=== PATIENT | male | born 1935 | race Caucasian/White ===

== ENCOUNTER 2017-08-20 09:19 | Inpatient (IN) | payer MEDICARE, OTHER ==
[~2017-08-20] VITALS: Ht 177.8 cm; Wt 80.0 kg
[~2017-08-20 09:19] MED LIST: ALFU1TAB10 PO; ASPI81TA82 PO; HYDR-3580 PO; METO25CR PO; NITR.3 SL; PROS5TAB2 PO; REST7.5C PO; RIVA15 PO; SIMV40TA PO; SPIRCAP INH; TAMS5CAP PO; ZETI10TA5 PO
[2017-08-20 09:34] VITALS: BP 113/54; PULSE 78; RESP 16; TEMP 97.5; O2SAT 99
[2017-08-20 09:54] VITALS: O2SAT 98
[2017-08-20 09:56] VITALS: BP 139/66; PULSE 55; RESP 18; O2SAT 97
[2017-08-20] MEDS ORDERED: SPIRCAP INH (10:16)
[2017-08-20] MEDS ORDERED: FINA5TAB2 (10:16)
[2017-08-20] MEDS ORDERED: SIMV20TA PO (10:16)
[2017-08-20] MEDS ORDERED: NEXI20CA PO (10:16)
[2017-08-20] MEDS ORDERED: ASPI-516 CHEW (10:16)
[2017-08-20] MEDS ORDERED: ALFU1TAB14 PO (10:16)
[2017-08-20] MEDS ORDERED: EZET10 PO (10:16)
[2017-08-20 10:26] LABS: AUTOMATED NEUTROPHIL # 5.2 TH/MM3 (1.8-7.7); BASOPHIL % 0.5 % (0.0-2.0); EOSINOPHIL # 0.2 TH/MM3 (0-0.4); EOSINOPHIL % 2.1 % (0.0-4.0); HEMATOCRIT 37.5 % (39.0-51.0); HEMOGLOBIN 12.6 GM/DL (13.0-17.0); LYMPH % 17.5 % (9.0-44.0); LYMPHOCYTE # 1.3 TH/MM3 (1.0-4.8); MEAN CELL VOLUME 90.1 FL (80.0-100.0); MEAN CORPUSCULAR HEMOGLOBIN 30.3 PG (27.0-34.0); MEAN CORPUSCULAR HGB CONC 33.7 % (32.0-36.0); MEAN PLATELET VOLUME 9.3 FL (7.0-11.0); MONOCYTE # 0.6 TH/MM3 (0-0.9); NEUT % 71.9 % (16.0-70.0); PLATELET COUNT 139 TH/MM3 (150-450); RED BLOOD COUNT 4.16 MIL/MM3 (4.50-5.90); RED CELL DISTRIBUTION WIDTH 13.6 % (11.6-17.2); WHITE BLOOD COUNT 7.3 TH/MM3 (4.0-11.0)
[2017-08-20 10:35] LABS: PROTHROMBIN TIME - PATIENT 10.6 SEC (9.8-11.6)
[2017-08-20 10:49] LABS: ALKALINE PHOSPHATASE 45 U/L (45-117); TOTAL BILIRUBIN ADULT 0.4 MG/DL (0.2-1.0); TOTAL PROTEIN 6.4 GM/DL (6.4-8.2)
[2017-08-20 10:58] LABS: ALBUMIN 3.2 GM/DL (3.4-5.0); ALT (GPT) 27 U/L (12-78); AST (GOT) 34 U/L (15-37); BICARBONATE 27.2 MEQ/L (21.0-32.0); BLOOD UREA NITROGEN 25 MG/DL (7-18); CALCIUM 8.2 MG/DL (8.5-10.1); CHLORIDE 111 MEQ/L (98-107); CREATININE 1.37 MG/DL (0.60-1.30); GLOMERULAR FILTRATION RATE 50 ML/MIN (>89); GLUCOSE,RANDOM 95 MG/DL (74-106); SODIUM (NA) 142 MEQ/L (136-145)
--- NOTE | 2017-08-20 11:19 | RADRPT ---
EXAM DATE/TIME: 08/20/2017 11:00 [facility] COMPARISON: No previous studies available for comparison. 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 Cardiovascular disease SURGICAL HISTORY : Cancer removed from face ENCOUNTER: Initial ACUITY: 1 day PAIN SCALE: 3/10 LOCATION: cranial TECHNIQUE: Multiple contiguous axial images were obtained of the head. Using automated exposure control and adj ustment of the mA and/or kV according to patient size, radiation dose was kept as low as reasonably a chievable to obtain optimal diagnostic quality images. DICOM format image data is available electro nically for review and comparison. FINDINGS: Radiopaque material is seen about the right mastoid. The right occipital horn is prominent. Left lateral ventricles appear normal. There is no parenchym al hemorrhage, acute infarction. No extra-axial fluid collections appreciated. Moderate artifact is present posterior fossa. Wasn't was midline. CONCLUSION: Negative for acute process. Adam Cantu MD FACR on August 20, 2017 at 11:16 Board Certified Radiologist. This report was verified electronically.
[2017-08-20] MEDS ORDERED: SODIUM CHLOR 0.9% 1000 ML INJ 1,000 ML IV SCH (11:30)
[2017-08-20] MEDS ORDERED: SODIUM CHLORID 0.9% 500 ML INJ 500 ML IV ONE (11:30)
--- NOTE | 2017-08-20 11:40 | PD ---
HPI Chief Complaint: Eye Problems/Injury Time Seen by Provider: 09:47 Travel History International Travel<30 days: No Contact w/Intl Traveler<30days: No Traveled to known affect area: No History of Present Illness HPI This is an 81-year-old male who presents today with complaints of intermittent left eye blurry vision. Patient reports that he has had bright lights intermittently in his left eye. He denies any injury. He denies any previous history of. He states it comes and goes however it was more consistent while he was out in the waiting room. When he arrived back in the room, he states he felt better and was having less frequent flashing lights and blurry vision. The patient denies any head pain. Patient does report that he has chronic right lower extremity sciatica. He does report also that he has had left carotid artery disease and was told in 2008 that it was almost bad enough to have surgery. The patient denies any chest pain, chest pressure. He does report that he has had intermittent palpitations. 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 There is no weakness of his extremities. There are no other complaints at time of examination. The patient currently takes a baby aspirin and is not taking any other blood thinners. Patient has a previous history of a TIA. 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, PRESENT LESION ON R SIDE OF FACE) Cardiac Catheterization: Yes (1995) Cardiovascular Problems: Yes High Cholesterol: Yes Chemotherapy: No Chest Pain: Yes Congestive Heart Failure: No COPD: No Cerebrovascular Accident: Yes (2008 TIA) Diminished Hearing: Yes (HARD OF HEARING) Endocrine: No Gastrointestinal Disorders: Yes GERD: Yes Genitourinary: Yes Hiatal Hernia: No Hypertension: Yes Immune Disorder: No Kidney Stones: Yes Musculoskeletal: Yes Neurologic: Yes Psychiatric: No Reproductive: No Respiratory: No Migraines: No Radiation Therapy: No Renal Failure: No Seizures: No Sleep Apnea: No Ulcer: No Past Surgical History Abdominal Surgery: No Cardiac Surgery: Yes (PTCA 1995) Ear Surgery: No Endocrine Surgery: No Eye Surgery: Yes (CATARACTS BOTH EYES) Genitourinary Surgery: Yes (KIDNEY STONES, BLADDER SURGERY 1988) Neurologic Surgery: Yes ("INTERVENTIONAL RADIOLOGY- [facility]") Oral Surgery: Yes (SQUAMOUS CELL CANCER REMOVED FROM LOWER LIP 2007 AND HEAD 2018) Thoracic Surgery: No Other Surgery: Yes Social History Alcohol Use: Yes (BEER 3x/week) Tobacco Use: No Substance Use: No Allergies-Medications (Allergen,Severity, Reaction): Coded Allergies: No Known Allergies (Unverified Adverse Reaction, Unknown, 08/20/17) Reported Meds & Prescriptions Reported Meds & Active Scripts Active Reported Nexium (Esomeprazole DR) 20 Mg Capdr 20 Mg PO EVERY OTHER DAY Spiriva Handihaler (Tiotropium Inh) 18 Mcg Cap 18 Mcg INH DAILY 1 capsule = 18 mcg Aspirin 81 Mg Chew 81 Mg CHEW DAILY Finasteride 5 Mg Tab 5 Mg DAILY Do not crush. Uroxatral ER 24 HR (Alfuzosin ER 24 HR) 10 Mg Tab 10 Mg PO DAILY Zetia (Ezetimibe) 10 Mg Tab 10 Mg PO DAILY Simvastatin 20 Mg Tab 20 Mg PO DAILY Review of Systems Except as stated in HPI: all other systems reviewed are Neg Eyes: Positive: Blurred Vision (Left), Photophobia (Left eye), Visual changes ( As per HPI), No: Diploplia, Foreign Body Sensation, Pain, Tearing HENT: No: Headaches, Neck Pain Cardiovascular: Positive: Chest Pain or Discomfort, Palpitations (Was told that he had abnormal rhythm previously.) Respiratory: No: Cough, Shortness of Breath Gastrointestinal: No: Nausea, Vomiting, Abdominal Pain Genitourinary: No: Urgency, Frequency, Dysuria Musculoskeletal: No: Arthralgias, Weakness, Pain Neurologic: Positive: Sensory Disturbance (Right lower extremity sciatica which is not new.), No: Weakness, Dizziness, Focal Abnormalities, Coordination Problem, Headache, Change in Mentation, Incontinence Physical Exam Narrative GENERAL: Well-developed well-nourished male in no acute respiratory distress. SKIN: Focused skin assessment warm/dry. HEAD: Atraumatic. Normocephalic. There are sutures and stitches on the top of his head. There is no evidence of drainage or infection noted. EYES: Extraocular muscles were intact. No scleral icterus. No injection or drainage. ENT: No nasal bleeding or discharge. Mucous membranes pink and moist. NECK: Trachea midline. Supple. CARDIOVASCULAR: Patient had a regular rate however on monitor bigeminy was noted. This then converted back to a normal rhythm. RESPIRATORY: No accessory muscle use. Clear to auscultation. Breath sounds equal bilaterally. GASTROINTESTINAL: Abdomen soft, non-tender, nondistended. Hepatic and splenic margins not palpable. MUSCULOSKELETAL: No obvious deformities. No clubbing. No cyanosis. No edema. NEUROLOGICAL: Awake and alert. No obvious cranial nerve deficits. Motor grossly within normal limits. Normal speech. Data Data Last Documented VS Vital Signs Date Time Temp Pulse Resp B/P (MAP) Pulse Ox O2 Delivery O2 Flow Rate FiO2 08/20/17 09:56 55 18 139/66 (90) 97 Room Air 08/20/17 09:34 97.5 Orders Orders Electrocardiogram (08/20/17 09:47) Complete Blood Count With Diff (08/20/17 09:47) Comprehensive Metabolic Panel (08/20/17 09:47) Prothrombin Time / Inr (Pt) (08/20/17 09:47) Act Partial Throm Time (Ptt) (08/20/17 09:47) Ct Brain W/O Iv Contrast(Rout) (08/20/17 09:47) Iv Access Insert/Monitor (08/20/17 09:47) Ecg Monitoring (08/20/17 09:47) Oximetry (08/20/17 09:47) Sodium Chlorid 0.9% 500 Ml Inj (Ns 500 M (08/20/17 11:30) Sodium Chlor 0.9% 1000 Ml Inj (Ns 1000 M (08/20/17 11:30) Diet Heart Healthy (08/20/17 Lunch) Vital Signs (Adult) HU.Q4H (08/20/17 12:11) Seed Collector / Telemetry HU.Q8H (08/20/17 12:11) Aspirin Chew (Aspirin Chew) (08/21/17 09:00) Ezetimibe (Zetia) (08/21/17 09:00) Finasteride (Proscar) (08/21/17 09:00) Tiotropium Inh (Spiriva Inh) (08/21/17 09:00) Tamsulosin (Flomax) (08/21/17 09:00) Pantoprazole (Protonix) (08/22/17 09:00) Pravastatin (Pravachol) (08/21/17 09:00) Us Carotid Arteries Comp Bilat (08/20/17 ) Echo 2d Comp With Doppler (08/20/17 ) Magnesium (Mg) (08/20/17 12:13) Consult Neurology (08/20/17 ) Sodium Chlor 0.9% 1000 Ml Inj (Ns 1000 M (08/20/17 12:30) Basic Metabolic Panel (Bmp) (08/21/17 06:00) Consult Pt Eval & Treat (08/20/17 12:42) Enoxaparin Inj (Lovenox Inj) (08/21/17 09:00) Lipid Profile (08/21/17 06:00) ^ Other Nursing Orders (08/20/17 12:42) Place In Observation (08/20/17 ) Admit Order (Ed Use Only) (08/20/17 12:41) Labs Laboratory Tests Test 08/20/17 10:05 08/20/17 12:40 White Blood Count 7.3 TH/MM3 Red Blood Count 4.16 MIL/MM3 Hemoglobin 12.6 GM/DL Hematocrit 37.5 % Mean Corpuscular Volume 90.1 FL Mean Corpuscular Hemoglobin 30.3 PG Mean Corpuscular Hemoglobin Concent 33.7 % Red Cell Distribution Width 13.6 % Platelet Count 139 TH/MM3 Mean Platelet Volume 9.3 FL Neutrophils (%) (Auto) 71.9 % Lymphocytes (%) (Auto) 17.5 % Monocytes (%) (Auto) 8.0 % Eosinophils (%) (Auto) 2.1 % Basophils (%) (Auto) 0.5 % Neutrophils # (Auto) 5.2 TH/MM3 Lymphocytes # (Auto) 1.3 TH/MM3 Monocytes # (Auto) 0.6 TH/MM3 Eosinophils # (Auto) 0.2 TH/MM3 Basophils # (Auto) 0.0 TH/MM3 CBC Comment DIFF FINAL Differential Comment Prothrombin Time 10.6 SEC Prothromb Time International Ratio 1.0 RATIO Activated Partial Thromboplast Time 24.3 SEC Blood Urea Nitrogen 25 MG/DL Creatinine 1.37 MG/DL Random Glucose 95 MG/DL Total Protein 6.4 GM/DL Albumin 3.2 GM/DL Calcium Level 8.2 MG/DL Alkaline Phosphatase 45 U/L Aspartate Amino Transf (AST/SGOT) 34 U/L Alanine Aminotransferase (ALT/SGPT) 27 U/L Total Bilirubin 0.4 MG/DL Sodium Level 142 MEQ/L Potassium Level 4.5 MEQ/L Chloride Level 111 MEQ/L Carbon Dioxide Level 27.2 MEQ/L Anion Gap 4 MEQ/L Estimat Glomerular Filtration Rate 50 ML/MIN Magnesium Level 1.7 MG/DL MDM Medical Decision Making Medical Screen Exam Complete: Yes Emergency Medical Condition: Yes Differential Diagnosis TIA versus amaurosis fugax versus dehydration versus metabolic derangement versus CVA Narrative Course 81-year-old male presents today with intermittent bright light sensations in his left eye. The patient has had a history of a previous TIA. I do not believe this is ophthalmological and more concerned about a TIA versus amaurosis fugax. The patient has a previous history of left carotid artery stenosis. He states that this was in 2008. He has not had his carotid arteries evaluated since then. The patient will need to be admitted to the hospital. He has been started on IV fluids as he has acute kidney injury. There is a call out to the [facility] hospitalist for admission. Diagnosis Primary Impression: Intermittent bright visual changes. Additional Impressions: Paroxysmal ventricular bigeminy Acute kidney injury History of TIAs Admitting Information Admitting Physician Requests: Admit Richy Villeda MD Aug 20, 2017 11:40
--- NOTE | 2017-08-20 12:40 | HHI.HP ---
[facility] Primary Care Physician No Primary Care Physician Admission Diagnosis TIA Diagnoses: (1) TIA (transient ischemic attack) Diagnosis: Principal Chief Complaint: ' I've been seeing light flashes'. Travel History International Travel<30 Days: No Contact w/Intl Traveler <30 Da: No Traveled to Known Affected Are: No History of Present Illness patient is a 81 y/o male with history of TIA, carotid artery disease, CAD and dyslipidemia who presented to ER stating that he's had light flashes since few days ago. he denies any headache, blurred vision, painful eyes, focal weakness or slurred speech. he says that he had a surgery for his squamous cell carcinoma about a week ago. a few days after he's been seeing light flashes. he denies any chest pain or sob. he says that he had TIA years ago and he was told that he had ' some blockage in carotids but didn't require any surgeries at the time.' Review of Systems Constitutional: DENIES: Fever, Weight loss, Chills, Night Sweats Eyes: DENIES: Blurred vision, Diplopia, Vision loss, Double Vision Ears, nose, mouth, throat: DENIES: Tinnitus, Vertigo, Throat pain, Epistaxis Respiratory: DENIES: Apneas, Cough, Snoring, Wheezing, Hemoptysis, Sputum production, Shortness of breath Cardiovascular: DENIES: Chest pain, Palpitations, Syncope, Dyspnea on Exertion , PND, Lower Extremity Edema, Orthopnea, Claudication Gastrointestinal: DENIES: Abdominal pain, Black stools, Bloody stools, Constipation, Diarrhea, Nausea, Vomiting, Difficulty Swallowing, Anorexia Genitourinary: DENIES: Urinary frequency, Urgency, Hematuria, Dysuria Musculoskeletal: DENIES: Joint pain, Muscle aches, Stiffness, Joint Swelling Integumentary: DENIES: Rash Neurologic: DENIES: Abnormal gait, Headache, Localized weakness, Paresthesias, Seizures, Speech Problems, Tremor, Poor Balance Psychiatric: DENIES: Anxiety, Confusion, Mood changes, Depression, Hallucinations, Agitation, Suicidal Ideation, Homicidal Ideation, Delusions light flashes. Past Family Social History Past Medical History TIA/ CAD/dyslipidemia Past Surgical History cataract surgery/ angioplasty Reported Medications Nexium (Esomeprazole DR) 20 Mg Capdr 20 Mg PO EVERY OTHER DAY Spiriva Handihaler (Tiotropium Inh) 18 Mcg Cap 18 Mcg INH DAILY 1 capsule = 18 mcg Aspirin 81 Mg Chew 81 Mg CHEW DAILY Finasteride 5 Mg Tab 5 Mg DAILY Do not crush. Uroxatral ER 24 HR (Alfuzosin ER 24 HR) 10 Mg Tab 10 Mg PO DAILY Zetia (Ezetimibe) 10 Mg Tab 10 Mg PO DAILY Simvastatin 20 Mg Tab 20 Mg PO DAILY Allergies: Coded Allergies: No Known Allergies (Unverified Adverse Reaction, Unknown, 08/20/17) Active Ordered Medications Inpatient Medications Aspirin (Aspirin Chew) 81 mg DAILY CHEW ; Start 08/21/17 at 09:00; Status UNV EZETIMIBE (Zetia) 10 mg DAILY PO ; Start 08/21/17 at 09:00; Status UNV Finasteride (Proscar) 5 mg DAILY PO ; Start 08/21/17 at 09:00; Status UNV Non-Formulary Medication 20 mg DAILY PO ; Start 08/21/17 at 09:00; Status UNV Sodium Chloride 1,000 ml @ 125 mls/hr Q8H IV Last administered on 08/20/17at 12: 03; Start 08/20/17 at 11:30 Tiotropium [place] (Spiriva Inh) 18 mcg DAILY INH ; Start 08/21/17 at 09:00; Status UNV Family History stroke in mother. Social History quit smoking years ago- drinks occasionally. Physical Exam Vital Signs Vital Signs Date Time Temp Pulse Resp B/P (MAP) Pulse Ox O2 Delivery O2 Flow Rate FiO2 08/20/17 09:56 55 18 139/66 (90) 97 Room Air 08/20/17 09:54 98 Room Air 08/20/17 09:34 97.5 78 16 113/54 (73) 99 Physical Exam GENERAL: This is a well-nourished, well-developed patient, in no apparent distress. SKIN: No rashes, ecchymoses or lesions. Cool and dry. HEAD: Atraumatic. Normocephalic. No temporal or scalp tenderness. EYES: Pupils equal round and reactive. Extraocular motions intact. No scleral icterus. No injection or drainage. ENT: Nose without bleeding, purulent drainage or septal hematoma. Throat without erythema, tonsillar hypertrophy or exudate. Uvula midline. Airway patent. NECK: Trachea midline. No JVD or lymphadenopathy. Supple, nontender, no meningeal signs. CARDIOVASCULAR: Regular rate and rhythm without murmurs, gallops, or rubs. RESPIRATORY: Clear to auscultation. Breath sounds equal bilaterally. No wheezes , rales, or rhonchi. GASTROINTESTINAL: Abdomen soft, non-tender, nondistended. No hepato-splenomegaly , or palpable masses. No guarding. MUSCULOSKELETAL: Extremities without clubbing, cyanosis, or edema. No joint tenderness, effusion, or edema noted. No calf tenderness. Negative Homans sign bilaterally. NEUROLOGICAL: Awake and alert. Cranial nerves II through XII intact. Motor and sensory grossly within normal limits. Five out of 5 muscle strength in all muscle groups. Normal speech. Laboratory Laboratory Tests Test 08/20/17 10:05 White Blood Count 7.3 Red Blood Count 4.16 Hemoglobin 12.6 Hematocrit 37.5 Mean Corpuscular Volume 90.1 Mean Corpuscular Hemoglobin 30.3 Mean Corpuscular Hemoglobin Concent 33.7 Red Cell Distribution Width 13.6 Platelet Count 139 Mean Platelet Volume 9.3 Neutrophils (%) (Auto) 71.9 Lymphocytes (%) (Auto) 17.5 Monocytes (%) (Auto) 8.0 Eosinophils (%) (Auto) 2.1 Basophils (%) (Auto) 0.5 Neutrophils # (Auto) 5.2 Lymphocytes # (Auto) 1.3 Monocytes # (Auto) 0.6 Eosinophils # (Auto) 0.2 Basophils # (Auto) 0.0 CBC Comment DIFF FINAL Differential Comment Prothrombin Time 10.6 Prothromb Time International Ratio 1.0 Activated Partial Thromboplast Time 24.3 Blood Urea Nitrogen 25 Creatinine 1.37 Random Glucose 95 Total Protein 6.4 Albumin 3.2 Calcium Level 8.2 Alkaline Phosphatase 45 Aspartate Amino Transf (AST/SGOT) 34 Alanine Aminotransferase (ALT/SGPT) 27 Total Bilirubin 0.4 Sodium Level 142 Potassium Level 4.5 Chloride Level 111 Carbon Dioxide Level 27.2 Anion Gap 4 Estimat Glomerular Filtration Rate 50 Result Diagram: 08/20/17 1005 08/20/17 1005 Imaging Last Impressions Head CT 08/20/17 1750 Signed Impressions: Service Date/Time: Sunday, August 20, 2017 11:00 - CONCLUSION: Negative for acute process. Adam Cantu MD FACR EKG; sinus rhythm with bigeminy Oleksandrrini VTE Risk Assessment Caprini VTE Risk Assessment: Mod/High Risk (score >= 2) Caprini Risk Assessment Model Point Value = 1 Point Value = 2 Point Value = 3 Point Value = 5 Age 41-60 Minor surgery BMI > 25 kg/m2 Swollen legs Varicose veins or History of unexplained or recurrent spontaneous Oral contraceptives or hormone replacement Sepsis (< 1 month) Serious lung disease, including pneumonia (< 1 month) Abnormal pulmonary function Acute myocardial infarction Congestive heart failure (< 1 month) History of inflammatory bowel disease Medical patient at bed rest Age 61-74 Arthroscopic surgery Major open surgery (> 45 min) Laparoscopic surgery (> 45 min) Malignancy Confined to bed (> 72 hours) Immobilizing plaster cast Central venous access Age >= 75 History of VTE Family history of VTE Factor V Leiden Prothrombin [id number] Lupus anticoagulant Anticardiolipin antibodies Elevated serum homocysteine Heparin-induced thrombocytopenia Other congenital or acquired thrombophilia Stroke (< 1 month) Elective arthroplasty Hip, pelvis, or leg fracture Acute spinal cord injury (< 1 month) Prophylaxis Regimen Total Risk Factor Score Risk Level Prophylaxis Regimen 0-1 Low Early ambulation 2 Moderate Order ONE of the following: *Sequential Compression Device (SCD) *Heparin 5000 units SQ BID 3-4 Higher Order ONE of the following medications: *Heparin 5000 units SQ TID *Enoxaparin/Lovenox 40 mg SQ daily (WT < 150 kg, CrCl > 30 mL/min) *Enoxaparin/Lovenox 30 mg SQ daily (WT < 150 kg, CrCl > 10-29 mL/min) *Enoxaparin/Lovenox 30 mg SQ BID (WT < 150 kg, CrCl > 30 mL/min) AND/OR *Sequential Compression Device (SCD) 5 or more Highest Order ONE of the following medications: *Heparin 5000 units SQ TID (Preferred with Epidurals) *Enoxaparin/Lovenox 40 mg SQ daily (WT < 150 kg, CrCl > 30 mL/min) *Enoxaparin/Lovenox 30 mg SQ daily (WT < 150 kg, CrCl > 10-29 mL/min) *Enoxaparin/Lovenox 30 mg SQ BID (WT < 150 kg, CrCl > 30 mL/min) AND *Sequential Compression Device (SCD) Assessment and Plan Assessment and Plan A/P - TIA/ amaurosis fugax-/ with history of TIA and carotid artery disease CT head with no acute abnormality. place on telemetry/ neuro-checks- check carotid doppler and echo- consult neurology continue aspirin . consult PT. -acute kidney injury; start on IV fluid and repeat BMP tomorrow. -CAD- s/p angioplasty - continue aspirin and zetia. -DVT prophylaxis with subq Lovenox Discussed Condition With ER physician, the patient and case management. Problem Qualifiers (1) TIA (transient ischemic attack): Qualified Codes: G45.3 - Amaurosis fugax Ruben Coy MD Aug 20, 2017 12:40
[2017-08-20] MEDS ORDERED: GADODIAMIDE PF 287 MG/ML 20 ML VIAL (for RAD MRI) IVCONTRAST ONE (12:47)
[2017-08-20] MEDS: SODIUM CHLOR 0.9% 1000 ML INJ 1,000 ML IV SCH ×3 (13:32→18:00)
--- NOTE | 2017-08-20 14:33 | RADRPT ---
EXAM DATE/TIME: 08/20/2017 13:45 [facility] COMPARISON: No previous studies available for comparison. INDICATIONS : Blurred vision Lt eye. MEDICAL HISTORY : Arthritis. Carotid stenosis. Gastroesophageal reflux disease. Hypertension. Kidney Stones. TIA. SURGICAL HISTORY : Bladder Surgery. Cardiac Cath. ENCOUNTER: Initial ACUITY: 1 day PAIN SCORE: 0/10 LOCATION: Bilateral neck PEAK SYSTOLIC VELOCITIES (cm/sec): ICA/CCA RATIO: Right: 1.8 Left: 1.0 ICA: Right: 122 Left: 92 CCA: Right: 69 Left: 89 ECA: Right: 53 Left: 92 VERTEBRAL: Right: 47 antegrade Left: 35 antegrade Elevated flow velocities and ICA/CCA ratios have been found to correlate with increased degrees of vessel stenosis, calculated as percentage of diameter relative to a normal segment of distal ICA/CCA FINDINGS: Ultrasound of the carotid arteries was performed bilaterally using real-time Doppler and color Dopple r imaging. Examination of the right carotid artery demonstrates mild fibrous plaque within the bifurcation. No w aveform abnormalities are identified and no spectral broadening is seen. Examination of the left lopes tid artery demonstrates mild fibrous plaque within the bulb. No waveform abnormalities are identified and no spectral broadening is seen. There is antegrade flow in both vertebral arteries. CONCLUSION: No evidence of hemodynamically significant lesion. Bud Houston MD on August 20, 2017 at 14:31 Board Certified Radiologist. This report was verified electronically.
[2017-08-20 15:43] VITALS: BP 155/75; PULSE 65; RESP 18; TEMP 97.4; O2SAT 99
--- NOTE | 2017-08-20 16:52 | ECHRPT ---
Indication: cva/tia CONCLUSIONS The left ventricular systolic function is normal with an estimated ejection fraction in the range of 60-65%. Normal left ventricular size. Wall thickness is normal. No regional wall motion abnormalities are present. Mild mitral annular calcification is present. [id number] mitral valve regurgitation. Trileaflet aortic valve. Moderate calcification of the non-coronary cusp. There is trace to mild tricuspid valve regurgitation. The estimated pulmonary arterial pressure is 38 mmHg. BP: 139 / 66 HR: 55 Rhythm: MEASUREMENTS (Male / Female) Normal Values Technical Quality: 2D ECHO LV Diastolic Diameter PLAX 4.9 cm 4.2 - 5.9 / 3.9 - 5.3 cm LV Systolic Diameter PLAX 3.4 cm IVS Diastolic Thickness 1.0 cm 0.6 - 1.0 / 0.6 - 0.9 cm LVPW Diastolic Thickness 1.0 cm 0.6 - 1.0 / 0.6 - 0.9 cm LV Relative Wall Thickness 0.4 RV Internal Dim ED PLAX 2.4 cm LVOT Diameter 2.1 cm LA Systolic Diameter LX 3.7 cm 3.0 - 4.0 / 2.7 - 3.8 cm LV Ejection Fraction MOD 4C 64.2 % LV Cardiac Index MOD 4C 1429.6 cm/minm LV Ejection Fraction 4C AL 65.7 % LV Cardiac Index 4C AL 1515.0 cm/minm M-MODE Aortic Root Diameter MM 2.8 cm AV Cusp Separation MM 1.1 cm DOPPLER AV Peak Velocity 100.0 cm/s AV Peak Gradient 4.0 mmHg LVOT Peak Velocity 89.8 cm/s LVOT Peak Gradient 3.2 mmHg AV Area Cont Eq pk 3.1 cm MV Area PHT 3.4 cm Mitral E Point Velocity 81.4 cm/s Mitral A Point Velocity 81.4 cm/s Mitral E to A Ratio 1.0 LV E' Lateral Velocity 5.6 cm/s Mitral E to LV E' Lateral Ratio 14.6 LV E' Septal Velocity 6.7 cm/s Mitral E to LV E' Septal Ratio 12.1 TR Peak Velocity 265.0 cm/s TR Peak Gradient 28.1 mmHg Right Atrial Pressure 10.0 mmHg Pulmonary Artery Systolic Pressu 38.1 mmHg Right Ventricular Systolic Press 38.1 mmHg PV Peak Velocity 78.7 cm/s PV Peak Gradient 2.5 mmHg FINDINGS LEFT VENTRICLE The left ventricular systolic function is normal with an estimated ejection fraction in the range of 60-65%. Normal left ventricular size. Wall thickness is normal. No regional wall motion abnormalities are present. RIGHT VENTRICLE Normal right ventricular size and systolic function. LEFT ATRIUM The left atrial size is normal. RIGHT ATRIUM The right atrial size is normal. ATRIAL SEPTUM Normal atrial septal thickness without atrial level shunting by limited color doppler interrogation. AORTA The aortic root and proximal ascending aorta are normal in size on limited imaging. MITRAL VALVE Mild mitral annular calcification is present. [id number] mitral valve regurgitation. AORTIC VALVE Trileaflet aortic valve. Moderate calcification of the non-coronary cusp. TRICUSPID VALVE Structurally normal tricuspid valve. There is trace to mild tricuspid valve regurgitation. The estimated pulmonary arterial pressure is 38 mmHg. PULMONARY VALVE Trivial pulmonary valve regurgitation. VESSELS The inferior vena cava is normal in size. PERICARDIUM No pericardial effusion. Zachary Conley MD (Electronically Signed) Final Date:20 August 2017 16:50
[2017-08-20 18:23] LABS: BILIRUBIN, URINE NEG (NEG); BLOOD, URINE NEG (NEG); GLUCOSE,URINE NEG (NEG); KETONE, URINE NEG (NEG); NITRITE,URINE NEG (NEG); PH, URINE 6.5 (5.0-8.5); URINE COLOR LIGHT-YELLOW (YELLW/STRAW); URINE LEUKOCYTE ESTERASE NEG (NEG)
[2017-08-20 20:00] VITALS: PULSE 66
[2017-08-20] MEDS: ASPIRIN 81 MG CHEW TAB CHEW SCH (21:09)
[2017-08-20 21:30] VITALS: BP 111/56; PULSE 66; RESP 18; TEMP 97.4; O2SAT 96
[2017-08-21] VITALS (7 sets, daily range): BP systolic 109–133; BP diastolic 62–72; PULSE 59–73; RESP 17–20; TEMP 97.4–98.5; O2SAT 94–97
[2017-08-21] MEDS: SODIUM CHLOR 0.9% 1000 ML INJ 1,000 ML IV SCH ×2 (02:01→21:03)
--- NOTE | 2017-08-21 07:46 | HHI.PR ---
Subjective Remarks sr Objective Vital Signs Date Time Temp Pulse Resp B/P (MAP) Pulse Ox O2 Delivery O2 Flow Rate FiO2 08/21/17 00:40 98.0 68 19 115/62 (79) 97 08/21/17 00:00 59 08/20/17 21:30 97.4 66 18 111/56 (74) 96 08/20/17 20:00 66 08/20/17 15:43 97.4 65 18 155/75 (101) 99 08/20/17 09:56 55 18 139/66 (90) 97 Room Air 08/20/17 09:54 98 Room Air 08/20/17 09:34 97.5 78 16 113/54 (73) 99 I/O 08/20/17 08/20/17 08/20/17 08/21/17 08/21/17 08/21/17 06:59 14:59 22:59 06:59 14:59 22:59 Intake Total 800 ml 1149 ml 610 ml Output Total 0 ml Balance 800 ml 1149 ml 610 ml Intake Oral 400 ml IV Total 800 ml 749 ml 610 ml Output Urine Total 0 ml # Voids 1 # Bowel Movements 0 Result Diagram: 08/20/17 1005 08/20/17 1005 Objective Remarks awake alert vff still with sparkles Assessment and Plan Assessment and Plan imp await labs and mri and eeg old r avm stable neuro asa for now Bud Bowers MD Aug 21, 2017 07:46
[2017-08-21 07:51] LABS: BICARBONATE 26.6 MEQ/L (21.0-32.0); BLOOD UREA NITROGEN 19 MG/DL (7-18); CALCIUM 7.4 MG/DL (8.5-10.1); CHLORIDE 112 MEQ/L (98-107); CHOLESTEROL 116 MG/DL (120-200); CREATININE 1.18 MG/DL (0.60-1.30); GLOMERULAR FILTRATION RATE 59 ML/MIN (>89); GLUCOSE,RANDOM 84 MG/DL (74-106); SODIUM (NA) 145 MEQ/L (136-145); TRIGLYCERIDES 65 MG/DL (42-150)
[2017-08-21 08:11] LABS: CHOLESTEROL/ HDL RATIO 2.08 RATIO; FREE T4 1.12 NG/DL (0.76-1.46); HDL CHOLESTEROL 55.6 MG/DL (40.0-60.0); LDL CHOLESTEROL 47 MG/DL (0-99); TROPONIN I LESS THAN 0.02 NG/ML (0.02-0.05)
[2017-08-21 08:17] LABS: CALCIUM-PROTEIN CORRECTED 8.1 MG/DL (8.5-10.1); TOTAL PROTEIN 5.9 GM/DL (6.4-8.2)
[2017-08-21] MEDS ORDERED: ASPIRIN 81 MG CHEW TAB CHEW SCH (09:00)
[2017-08-21] MEDS ORDERED: ENOXAPARIN SODIUM 30 MG/0.3 ML SYRINGE SQ SCH (09:00)
[2017-08-21] MEDS: TIOTROPIUM BROMIDE 18 MCG INH INH SCH (09:00)
[2017-08-21] MEDS: FINASTERIDE 5 MG TAB PO SCH (09:04)
[2017-08-21] MEDS: EZETIMIBE 10 MG TAB PO SCH (09:04)
[2017-08-21] MEDS: TAMSULOSIN HCL 0.4 MG CAP PO SCH (09:04)
[2017-08-21] MEDS: PRAVASTATIN SOD 40 MG TAB PO SCH (09:04)
[2017-08-21] MEDS: ASPIRIN 81 MG CHEW TAB CHEW SCH (09:07)
--- NOTE | 2017-08-21 10:44 | HHI.PR ---
Subjective Remarks in no acute distress. still with on and off light flashes. no focal weakness, headache or slurred speech. d/w the RN. Objective Vitals Vital Signs Date Time Temp Pulse Resp B/P (MAP) Pulse Ox O2 Delivery O2 Flow Rate FiO2 08/21/17 08:00 97.4 63 18 131/72 (91) 96 08/21/17 05:45 98.0 67 18 112/63 (79) 95 08/21/17 00:40 98.0 68 19 115/62 (79) 97 08/21/17 00:00 59 08/20/17 21:30 97.4 66 18 111/56 (74) 96 08/20/17 20:00 66 08/20/17 15:43 97.4 65 18 155/75 (101) 99 I/O 08/20/17 08/20/17 08/20/17 08/21/17 08/21/17 08/21/17 07:00 15:00 23:00 07:00 15:00 23:00 Intake Total 800 ml 1149 ml 1310 ml Output Total 0 ml Balance 800 ml 1149 ml 1310 ml Intake Oral 400 ml 700 ml IV Total 800 ml 749 ml 610 ml Output Urine Total 0 ml # Voids 1 2 # Bowel Movements 0 0 Result Diagram: 08/20/17 1005 08/21/17 0635 Imaging Last Impressions Head CT 08/20/17 0947 Signed Impressions: Service Date/Time: Sunday, August 20, 2017 11:00 - CONCLUSION: Negative for acute process. Adam Cantu MD FACR Carotid Artery Ultrasound 08/20/17 0000 Signed Impressions: Service Date/Time: Sunday, August 20, 2017 13:45 - CONCLUSION: No evidence of hemodynamically significant lesion. Bud Houston MD Objective Remarks GENERAL: This is a well-nourished, well-developed patient, in no apparent distress. CARDIOVASCULAR: Regular rate and regular rhythm without murmurs, gallops, or rubs. RESPIRATORY: Clear to auscultation. Breath sounds equal bilaterally. No wheezes , rales, or rhonchi. GASTROINTESTINAL: Abdomen soft, non-tender, nondistended. Normal, active bowel sounds MUSCULOSKELETAL: Extremities without clubbing, cyanosis, or edema. NEURO: Alert & Oriented x4 to person, place, time, situation. Moves all ext x4 Medications and IVs Inpatient Medications Aspirin (Aspirin Chew) 325 mg DAILY CHEW Last administered on 08/21/17at 09:07; Start 08/20/17 at 17:00 Enoxaparin Sodium (Lovenox Inj) 30 mg Q24H SQ ; Start 08/21/17 at 09:00 EZETIMIBE (Zetia) 10 mg DAILY PO Last administered on 08/21/17at 09:04; Start 08/21/17 at 09:00 Finasteride (Proscar) 5 mg DAILY PO Last administered on 08/21/17at 09:04; Start 08/21/17 at 09:00 Pantoprazole Sodium (Protonix) 20 mg EVERY OTHER DAY PO ; Start 08/22/17 at 09: 00 Pravastatin Sodium (Pravachol) 40 mg DAILY PO Last administered on 08/21/17at 09: 04; Start 08/21/17 at 09:00 Sodium Chloride 1,000 ml @ 75 mls/hr [id number] IV Last administered on 08/21/17at 02:01; Start 08/20/17 at 18:00 Tamsulosin HCl (Flomax) 0.4 mg DAILY PO Last administered on 08/21/17at 09:04; Start 08/21/17 at 09:00 Tiotropium [place] (Spiriva Inh) 18 mcg DAILY INH ; Start 08/21/17 at 09:00 A/P Problem List: (1) TIA (transient ischemic attack) ICD Code: G45.9 - Transient cerebral ischemic attack, unspecified Assessment and Plan A/P - TIA/ amaurosis fugax-/ with history of TIA and carotid artery disease CT head with no acute abnormality. carotid doppler with no significant stenosis. echo with EF 60%. neurology consult appreciated; awaiting MRI/MRA brain and EEG. continue aspirin . consulted PT. -acute kidney injury;improved. -CAD- s/p angioplasty - continue aspirin and statin. -DVT prophylaxis with subq Lovenox Discharge Planning awaiting work-up and neurology clearance. Problem Qualifiers (1) TIA (transient ischemic attack): Qualified Codes: G45.3 - Amaurosis fugax Ruben Coy MD Aug 21, 2017 10:44
--- NOTE | 2017-08-21 11:22 | RADRPT ---
EXAM DATE/TIME: 08/21/2017 10:42 [facility] COMPARISON: MRI BRAIN W & W/O CONTRAST, August 21, 2017, 10:42. INDICATIONS : Blurry vision. MEDICAL HISTORY : Hypercholesterolemia. TIA SURGICAL HISTORY : AVM repair, Bladder sx, Kidney surgery ENCOUNTER: Subsequent ACUITY: 2 day PAIN SCORE: 0/10 LOCATION: cranial Please note a normal MRA of the brain does not entirely exclude the possibility of a small aneurysm, nor the possibility of distal intracranial vessel disease. TECHNIQUE: 3D time of flight MRA was performed. Source images, multiplanar STS MIP, and 3D volume MIP reconstru ctions were reviewed. FINDINGS: There is excellent visualization of the major intracranial arteries out to the second-order branch ve ssels. The right A1 segment is not visualized. 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 There are bilat eral patent posterior communicating arteries. There is no evidence for aneurysm, vessel truncation or stenosis, and no evidence for vascular malformation. CONCLUSION: 1. 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 2. Otherwise, unremarkable MRA of the brain. Sabino Pisano MD on August 21, 2017 at 11:17 Board Certified Radiologist. This report was verified electronically.
--- NOTE | 2017-08-21 11:29 | RADRPT ---
EXAM DATE/TIME: 08/21/2017 10:42 [facility] COMPARISON: CT BRAIN W/O CONTRAST, August 20, 2017, 11:00. INDICATIONS : Blurry vision. CONTRAST: 20 cc Omniscan (gadodiamide) IV MEDICAL HISTORY : Hypercholesterolemia. TIA SURGICAL HISTORY : AVM repair, bladder sx, kidney sx. ENCOUNTER: Subsequent ACUITY: 2 day PAIN SCORE: 0/10 LOCATION: cranial TECHNIQUE: Multiplanar, multisequence MRI of the brain was performed both prior to and following the administrat ion of paramagnetic contrast. FINDINGS: CEREBRUM: Mild diffuse renal atrophy. There is encephalomalacia in the right temporal lobe with associated enla rgement of the temporal horn of the right lateral ventricle. The ventricles are otherwise unremarkabl e for degree of atrophy. 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 No evidence of midline shift, mass lesion, hemorrhage or acute infarction. No extraax ial fluid collections are seen. The pituitary gland and suprasellar cistern are normal in configurat ion. WHITE MATTER: No significant signal abnormalities are seen in the white matter. POSTERIOR FOSSA: The cerebellum and brainstem are intact. The 4th ventricle is midline. The cerebellopontine angle is unremarkable. The cerebellar tonsils are normal in position. DIFFUSION IMAGING: No focal areas of restricted diffusion are seen. No evidence of acute infarction. EXTRACRANIAL: The visualized portions of the orbits and paranasal sinuses are unremarkable. POST-CONTRAST: No abnormal areas of parenchymal or dural enhancement. No evidence of blood-brain barrier breakdown. CONCLUSION: 1. 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 2. No acute abnormality. Specifically, no evidence for acute hemorrhage, acute infarction, or abnorma l enhancement/mass. Zafar Contreras MD on August 21, 2017 at 11:18 Board Certified Radiologist. This report was verified electronically.
--- NOTE | 2017-08-21 11:59 | RADRPT ---
EXAM DATE/TIME: 08/21/2017 10:42 [facility] COMPARISON: No previous studies available for comparison. INDICATIONS : Blurry vision. CONTRAST: 20 cc Omniscan (gadodiamide) IV MEDICAL HISTORY : Hypercholesterolemia. TIA SURGICAL HISTORY : AVM repair, Bladder sx, Kidney sx ENCOUNTER: Subsequent ACUITY: 2 day PAIN SCORE: 0/10 LOCATION: cranial Percent stenosis is calculated using the diameter of the stenotic region over the diameter of the nor mal distal internal carotid artery. TECHNIQUE: Bolus infused MRA of the extracranial circulation was performed using a neurovascular coil. Post pro cessing was performed including rotating subvolume maximum intensity projections of each carotid anabela ry, rotating full volume maximum intensity projections of both carotid arteries, sagittal and coronal sliding thin slab reformations of each carotid artery, and left oblique sliding thin slab reformatio n through the aortic arch to include the origin of the arch branch vessels. FINDINGS: AORTIC ARCH: There is a three vessel origin of the great vessels from the aorta. No evidence of ostial narrowing. RIGHT CAROTID: Atherosclerotic plaque is seen involving the proximal ICA. Utilizing NASCET criteria this generates a 50% stenosis without ulceration. The common carotid artery and external carotid artery are patent. LEFT CAROTID: Atherosclerotic plaque generates a 30% stenosis of the ICA origin utilizing NASCET criteria. No ulcer ation. ECA and CCA are patent. VERTEBRALS: There is a focal high-grade stenosis involving the left vertebral artery origin. Both vertebral arter ies are equal in size and does contribute to the basilar. The right is patent. CONCLUSION: 1. 50% stenosis involving the right ICA and 30% stenosis of the left ICA. 2. 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 See Meredith Jr., MD on August 21, 2017 at 11:44 Board Certified Radiologist. This report was verified electronically.
--- NOTE | 2017-08-21 12:05 | MB ---
cc: Bud Bowers MD DATE OF CONSULT: 08/20/2017 HISTORY OF PRESENT ILLNESS: This is an 81-year-old right handed man with hypercholesteremia, angioplasty in 1995, occasional chest pain. He was on Xarelto at one time, no longer, just takes 81 of aspirin. Denies any definite atrial fibrillation. He had a ureter that had to have surgery on years ago, which left him with some renal insufficiency in the left kidney only and possibly some COPD or pre-COPD, skin cancer, squamous recently taken off for. He had a TIA he says in 2007, when he had fallen and hit his head and then about a month later, he wound up having an intervention where he probably had neuroradiology intervention for possibly AVM on the right side, with some epoxy placed. Went in and did about 4 vessels. He has been taking an aspirin recently. He has not had an MRI since that time. He was not told he could not have an MRI, however. Last Sunday, he began to have about 15 minutes of sparkling vision over to the left. He also noticed a few days after that Sunday that he had some tingling in the right hand more than the left hand when he was playing golf. He has had some occasional chest pain recently and in the past. No headache associated with it. No history of migraines. No asymmetrical weakness or facial droop or slurred speech. He continues to have the sparkling over to the left. It has been on and off, but he is not sure, he thinks it has gone away entirely, but it has been mostly there, at least to a small amount. He is just down here for 6 months a year. He usually just lives up in [place]. ALLERGIES: HE HAS NO KNOWN DRUG ALLERGIES. MEDICATIONS: He is on Nexium, Spiriva, 81 of aspirin, finasteride, Uroxatral, Zetia, simvastatin. PHYSICAL EXAMINATION: VITAL SIGNS: Afebrile, pulse 65, respiratory rate 18, blood pressure 155/75. CARDIOVASCULAR: No carotid bruits. Heart was regular rhythm. I do not detect a murmur. HEENT: Pupils are equal. Visual bautista are full. Extraocular movements intact, without nystagmus. NEUROLOGIC: Face is symmetric with normal sensation. Tongue was midline. There is no drift. Normal strength in upper and lower extremities bilaterally. He can count fingers in all 4 quadrants. He does, however, see some sparkles over to the left, in both the left eye and the right eye, and they move as his eyes move. Toes down-going bilaterally. Pinprick is intact throughout. DTRs are trace throughout. He is not ataxic on [id number]. Speech is fluent. He is not aphasic. Gives a good history. IMAGING: He had a carotid ultrasound that was negative. He had a CAT scan of the brain that shows some radiopaque around the right mastoid. Right occipital horn of the ventricle is prominent. I thought that he had on reviewing the films some metal artifact around that same region, some hyperdensity in that region. Also, it looks like there is something outside the skull, around the right occipital region. Hard to say what that is, but it is hyperdense. IMPRESSION AND PLAN: Since his vision change has stayed there, I worry that he could have had a small stroke. A seizure could be another consideration, I think less likely. If possible, we will check an MRI of the brain, MRA of the [place] and neck. Look for any particular basal stenosis. I am not sure why he was on Xarelto for a while. I note that he was seen back in 2012 here. He had a small pulmonary embolus on aspirin and that was why he was switched to Xarelto it appears, but he no longer takes that. I note an echocardiogram at that time, which showed a normal ejection fraction, with a normal left atrial size. His symptoms do not correspond with amaurosis fugax. We will also check an EEG. MD BRITTANIE Bashir/YONNY , 04:59 PM , 05:34 PM
--- NOTE | 2017-08-21 16:58 | MG ---
cc: Bud Bowers MD EEG NUMBER: [id number] INTRODUCTION: Hyperventilation not performed. 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 DESCRIPTION: The recording shows diffuse alpha and beta rhythms. Recording overall is synchronous and symmetric. Occasional diffuse 5 Hz slowing is noted. I do not see anything definitely abnormal in the right parietal temporal head region. It looks like he goes into sleep and reaches some stage II sleep with some sleep spindles and K-complexes. No epileptiform or seizure activity is noted. There are no hemisphere asymmetries. Photic stimulation is performed without significant posterior driving. IMPRESSION: Essentially unremarkable awake and sleep electroencephalogram. No right occipital or parietal abnormalities are noted. Bud Bowers MD DJM/KD , 04:32 PM , 04:57 PM
[2017-08-21] MEDS ORDERED: CLOPIDOGREL 75 MG TAB PO ONE (19:45)
[2017-08-22] VITALS (9 sets, daily range): BP systolic 118–161; BP diastolic 64–75; PULSE 67–103; RESP 18–19; TEMP 97.2–98.6; O2SAT 94–98
[2017-08-22] MEDS ORDERED: IOHEXOL 350 MG/ML 10 ML VIAL (for RAD DIAG) IVCONTRAST ONE (01:18)
--- NOTE | 2017-08-22 01:31 | RADRPT ---
EXAM DATE/TIME: 08/22/2017 00:59 [facility] COMPARISON: CT BRAIN W/O CONTRAST, August 20, 2017, 11:00. MRA BRAIN W/O CONTRAST, August 21, 2017, 10:42. INDICATIONS : Blurry vision. Evaluate for occlusion. IV CONTRAST: 75 cc Omnipaque 350 (iohexol) IV ; Cumulative dose for multiple exams. RADIATION DOSE: 10.07 CTDIvol (mGy) ; Combined studies MEDICAL HISTORY : Cardiovascular disease. TIA. Squamos cell cancer. SURGICAL HISTORY : AVM repair. ENCOUNTER: Initial ACUITY: 1 day PAIN SCALE: 0/10 LOCATION: cranial TECHNIQUE: Volumetric scanning was performed using a multi-row detector CT scanner. The data was post processed with a variety of visualization algorithms including full volume maximum intensity projection, multi -planar sliding thin slab reformation, curved planar reformation, and surface rendering techniques. Using automated exposure control and adjustment of the mA and/or kV according to patient size, radiat ion dose was kept as low as reasonably achievable to obtain optimal diagnostic quality images. DICO M format image data is available electronically for review and comparison. FINDINGS: Anterior circulation: There is moderate atherosclerotic calcification of the cavernous and supraclinoid segments of the int ernal carotid arteries bilaterally. No high-grade stenosis is appreciated. The right A1 segment is ab sent. The A2 segments bilaterally are within normal limits. Left A1 segment is within normal limits. There is symmetric enhancement of the middle cerebral arteries bilaterally. No high-grade stenosis or aneurysm is identified. Posterior circulation: Vertebral arteries are co-dominant. Basilar artery demonstrates no abnormality. There is persistent f etal circulation on the right. Posterior cerebral arteries are patent bilaterally. No aneurysm or hig h-grade stenosis is seen. The nonvascular findings have a stable appearance with stable artifact related to the coils and clips along the right occipital region. There is generalized atrophy. CONCLUSION: No acute intracranial vascular abnormality is identified. There is moderate atherosclerotic disease o f the cavernous ICAs bilaterally. Eze Juárez MD on August 22, 2017 at 1:24 Board Certified Radiologist. This report was verified electronically.
--- NOTE | 2017-08-22 01:39 | RADRPT ---
EXAM DATE/TIME: 08/22/2017 00:59 [facility] COMPARISON: US CAROTID ARTERIES, August 20, 2017, 13:45. MRA CAROTIDS W CONTRAST, August 21, 2017, 10:42. INDICATIONS : Blurry vision. Evaluate for occlusion. IV CONTRAST: 75 cc Omnipaque 350 (iohexol) IV ; Cumulative dose for multiple exams. RADIATION DOSE: 10.07 CTDIvol (mGy) ; Combined studies MEDICAL HISTORY : Cardiovascular disease. TIA. Squamos cell cancer. SURGICAL HISTORY : AVM repair. ENCOUNTER: Initial ACUITY: 1 day PAIN SCALE: 0/10 LOCATION: neck Elevated flow velocities and ICA/CCA ratios have been found to correlate with increased degrees of vessel stenosis, calculated as percentage of diameter relative to a normal segment of distal ICA/CCA. TECHNIQUE: Volumetric scanning was performed using a multirow detector CT scanner. The data was post processed with a variety of visualization algorithms including full-volume maximum intensity projection, multip lanar sliding thin-slab reformation, curved-planar reformation, and surface-rendering techniques. Us ing automated exposure control and adjustment of the mA and/or kV according to patient size, radiatio n dose was kept as low as reasonably achievable to obtain optimal diagnostic quality images. DICOM f ormat image data is available electronically for review and comparison. FINDINGS: AORTIC ARCH: There is a three-vessel origin of the great vessels from the aorta. Moderate atherosclerotic disease is present at the arch and in the proximal great vessels. RIGHT CAROTID: The common carotid artery demonstrates no significant abnormality. There is severe calcified plaque i n the carotid bulb and proximal internal carotid artery with approximately 60% stenosis. External car otid artery demonstrates no significant stenosis. LEFT CAROTID: Common carotid artery demonstrates mild plaque proximally near the arch. More distally demonstrates n o significant abnormality. There is moderate calcified and noncalcified plaque in the proximal college intern al carotid artery with approximately 30% stenosis. External carotid artery demonstrates no significan t abnormality. VERTEBRALS: The vertebral arteries have a symmetric diameter. There is focal calcified plaque at the origins of t he vertebral arteries bilaterally. CONCLUSION: 1. Moderate severity a calcified plaque in the proximal right internal carotid artery with approximat dennis 60% stenosis. 2. Moderate calcified plaque in the proximal left internal carotid artery with approximately 30% sten osis. Eze Juárez MD on August 22, 2017 at 1:30 Board Certified Radiologist. This report was verified electronically.
--- NOTE | 2017-08-22 07:28 | HHI.PR ---
Subjective Remarks sr Objective Vital Signs Date Time Temp Pulse Resp B/P (MAP) Pulse Ox O2 Delivery O2 Flow Rate FiO2 08/22/17 04:56 103 08/22/17 04:30 98.3 67 19 120/64 (82) 98 08/22/17 00:10 98.6 75 18 126/65 (85) 95 08/21/17 21:30 98.5 64 18 116/65 (82) 96 08/21/17 16:04 97.7 73 20 109/63 (78) 94 08/21/17 11:40 97.7 67 17 133/68 (89) 94 08/21/17 08:00 97.4 63 18 131/72 (91) 96 08/21/17 08:00 66 I/O 08/21/17 08/21/17 08/21/17 08/22/17 08/22/17 08/22/17 07:00 15:00 23:00 07:00 15:00 23:00 Intake Total 1310 ml 1220 ml 500 ml Output Total 400 ml Balance 1310 ml 820 ml 500 ml Intake Oral 700 ml 1220 ml 500 ml IV Total 610 ml Output Urine Total 400 ml # Voids 2 4 2 # Bowel Movements 0 0 0 Result Diagram: 08/20/17 1005 08/21/17 0635 Objective Remarks awake alert vff no sparkles this am no scotoma Assessment and Plan Assessment and Plan imp await labs and mri and eeg old r avm stable neuro asa for now 08/22/17 no vision change this am b12 low shots ldl and esr ok echo nl imaging on my review: left vertebral origin stenosis 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
[2017-08-22] MEDS: ENOXAPARIN SODIUM 40 MG/0.4 ML SYRINGE SQ SCH ×2 (09:00→12:40)
[2017-08-22] MEDS ORDERED: PANTOPRAZOLE SOD 20 MG DELAYED RELEASE TAB PO SCH (09:00)
[2017-08-22] MEDS: TIOTROPIUM BROMIDE 18 MCG INH INH SCH (09:00)
[2017-08-22] MEDS: SODIUM CHLOR 0.9% 1000 ML INJ 1,000 ML IV SCH ×4 (09:31→23:20)
[2017-08-22] MEDS: TAMSULOSIN HCL 0.4 MG CAP PO SCH (09:33)
[2017-08-22] MEDS: ASPIRIN 81 MG CHEW TAB CHEW SCH (09:33)
[2017-08-22] MEDS: EZETIMIBE 10 MG TAB PO SCH (09:34)
[2017-08-22] MEDS: PRAVASTATIN SOD 40 MG TAB PO SCH (09:34)
[2017-08-22] MEDS: FINASTERIDE 5 MG TAB PO SCH (09:34)
[2017-08-22] MEDS: CYANOCOBALAMIN 1000 MCG/ML VIAL SQ SCH (09:36)
--- NOTE | 2017-08-22 09:36 | RADRPT ---
EXAM DATE/TIME: 08/22/2017 08:52 This report includes an Addendum and supersedes previous reports for this exam. [facility] COMPARISON: CTA BRAIN W 3D RECON, August 22, 2017, 0:59. CT BRAIN W/O CONTRAST, August 20, 2017, 11:00. MRI BRAIN W & W/O CONTRAST, August 21, 2017, 10:42. INDICATIONS : Blurred vision. MEDICAL HISTORY : Hypercholesterolemia. Renal calculi. TIA. AVM. SURGICAL HISTORY : Angioplasty. AVM repair. Bladder surgery. ENCOUNTER: Subsequent ACUITY: 2 day PAIN SCORE: 0/10 LOCATION: head. TECHNIQUE: Multiplanar, multisequence MRI of the brain was performed without contrast. FINDINGS: CEREBRUM: Encephalomalacia within the right temporal lobe with overall atrophy of the right temporal lobe is st able. The ventricles are normal for age. No evidence of midline shift, mass lesion, hemorrhage or ac mariel infarction. No extraaxial fluid collections are seen. The pituitary gland and suprasellar ciste rn are normal in configuration. WHITE MATTER: No significant signal abnormalities are seen in the white matter. POSTERIOR FOSSA: Artifact from prior Fate embolization of a dural AVM on the right. The cerebellum and brainstem are i ntact. The 4th ventricle is midline. The cerebellopontine angle is unremarkable. The cerebellar ton sils are normal in position. DIFFUSION IMAGING: No focal areas of restricted diffusion are seen. No evidence of acute infarction. EXTRACRANIAL: The visualized portions of the orbits and paranasal sinuses are unremarkable. CONCLUSION: 1. No acute intracranial abnormality. 2. Atrophy and encephalomalacia involving the right temporal lobe. 3. 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 See Meredith Jr., MD on August 22, 2017 at 9:27 Board Certified Radiologist. This report was verified electronically. 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 The prior contrast enhanced MRI on 08/21/2017 demonstrated hete rogeneous enhancement throughout the right transverse sinus. The enhancement is more characteristic o f a subacute to chronic thrombosis. Without prior studies for comparison interval progression or rece nt occlusion cannot be excluded. T2 hyperintensity is identified in the right occipital lobe. There i s subtle restricted diffusion which would indicate a subacute ischemic process. There is no parenchym al hemorrhage. Lester Lamb MD on August 22, 2017 at 11:31 Board Certified Radiologist. This report was verified electronically.
--- NOTE | 2017-08-22 09:55 | HHI.PR ---
Subjective Remarks in no acute distress. no significant change in his visual complaint; still with some on and off light flashes. no other complaints. Objective Vitals Vital Signs Date Time Temp Pulse Resp B/P (MAP) Pulse Ox O2 Delivery O2 Flow Rate FiO2 08/22/17 08:15 97.2 70 18 129/67 (87) 94 08/22/17 04:56 103 08/22/17 04:30 98.3 67 19 120/64 (82) 98 08/22/17 00:10 98.6 75 18 126/65 (85) 95 08/21/17 21:30 98.5 64 18 116/65 (82) 96 08/21/17 16:04 97.7 73 20 109/63 (78) 94 08/21/17 11:40 97.7 67 17 133/68 (89) 94 I/O 08/21/17 08/21/17 08/21/17 08/22/17 08/22/17 08/22/17 07:00 15:00 23:00 07:00 15:00 23:00 Intake Total 1310 ml 1220 ml 500 ml Output Total 400 ml Balance 1310 ml 820 ml 500 ml Intake Oral 700 ml 1220 ml 500 ml IV Total 610 ml Output Urine Total 400 ml # Voids 2 4 2 # Bowel Movements 0 0 0 Result Diagram: 08/20/17 1005 08/21/17 0635 Imaging Last Impressions Brain MRI 08/22/17 0717 Signed Impressions: Service Date/Time: Tuesday, August 22, 2017 08:52 - CONCLUSION: 1. No acute intracranial abnormality. 2. Atrophy and encephalomalacia involving the right temporal lobe. 3. 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 See Meredith Jr., MD Neck Magnetic Resonance Angiography 08/21/171656 Signed Impressions: Service Date/Time: Monday, August 21, 2017 10:42 - CONCLUSION: 1. 50%% stenosis involving the right ICA and 30%% stenosis of the left ICA. 2. 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 See Meredith Jr., MD Head Magnetic Resonance Angiography 08/21/171656 Signed Impressions: Service Date/Time: Monday, August 21, 2017 10:42 - CONCLUSION: 1. 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 2. Otherwise, unremarkable MRA of the brain. Sabino Pisano MD Neck CTA 08/21/17 Signed Impressions: Service Date/Time: Tuesday, August 22, 2017 00:59 - CONCLUSION: 1. Moderate severity a calcified plaque in the proximal right internal carotid artery with approximately 60%% stenosis. 2. Moderate calcified plaque in the proximal left internal carotid artery with approximately 30%% stenosis. Eze Juárez MD Head CTA 08/21/17 Signed Impressions: Service Date/Time: Tuesday, August 22, 2017 00:59 - CONCLUSION: No acute intracranial vascular abnormality is identified. There is moderate atherosclerotic disease of the cavernous ICAs bilaterally. Eze Juárez MD Head CT 08/20/17 0947 Signed Impressions: Service Date/Time: Sunday, August 20, 2017 11:00 - CONCLUSION: Negative for acute process. Adam Cantu MD FACR Carotid Artery Ultrasound 08/20/17 Signed Impressions: Service Date/Time: Sunday, August 20, 2017 13:45 - CONCLUSION: No evidence of hemodynamically significant lesion. Bud Houston MD Objective Remarks GENERAL: This is a well-nourished, well-developed patient, in no apparent distress. CARDIOVASCULAR: Regular rate and regular rhythm without murmurs, gallops, or rubs. RESPIRATORY: Clear to auscultation. Breath sounds equal bilaterally. No wheezes , rales, or rhonchi. GASTROINTESTINAL: Abdomen soft, non-tender, nondistended. Normal, active bowel sounds MUSCULOSKELETAL: Extremities without clubbing, cyanosis, or edema. NEURO: Alert & Oriented x4 to person, place, time, situation. Moves all ext x4 Medications and IVs Inpatient Medications Aspirin (Aspirin Chew) 325 mg DAILY CHEW Last administered on 08/22/17at 09:33; Start 08/20/17 at 17:00 Clopidogrel Bisulfate (Plavix) 75 mg NOW ONCE PO Last administered on at 21:09; Start 08/21/17 at 19:45; Stop 08/21/17 at 19:46; Status DC Cyanocobalamin (Vitamin B12 Inj) 1,000 mcg DAILY SQ Last administered on at 09:36; Start 08/22/17 at 09:00; Stop 08/25/17 at 08:59 Enoxaparin Sodium (Lovenox Inj) 40 mg Q24H SQ ; Start 08/22/17 at 09:00 EZETIMIBE (Zetia) 10 mg DAILY PO Last administered on 08/22/17 09:34; Start 08/21/17 at 09:00 Finasteride (Proscar) 5 mg DAILY PO Last administered on 08/22/17 09:34; Start 08/21/17 at 09:00 Pantoprazole Sodium (Protonix) 20 mg EVERY OTHER DAY PO Last administered on 09:33; Start 08/22/17 at 09:00 Pravastatin Sodium (Pravachol) 40 mg DAILY PO Last administered on 08/22/17 09: 34; Start 08/21/17 at 09:00 Sodium Chloride 1,000 ml @ 100 mls/hr Q10H IV Last administered on 08/22/17 09 :31; Start 08/22/17 at 07:17 Tamsulosin HCl (Flomax) 0.4 mg DAILY PO Last administered on 08/22/17 09:33; Start 08/21/17 at 09:00 Tiotropium [employer] (Spiriva Inh) 18 mcg DAILY INH ; Start 08/21/17 at 09:00 A/P Problem List: (1) TIA (transient ischemic attack) ICD Code: G45.9 - Transient cerebral ischemic attack, unspecified Assessment and Plan A/P - TIA/ amaurosis fugax-/ with history of TIA and carotid artery disease CT head with no acute abnormality. carotid doppler with no significant stenosis. echo with EF 60%. neurology f/u appreciated; awaiting CTV brain. vascular surgery consulted. continue aspirin . consulted PT. -vitamin B12 deficiency; continue with supplement. -acute kidney injury;improved. -CAD- s/p angioplasty - continue aspirin and statin. -DVT prophylaxis with subq Lovenox Discharge Planning awaiting work-up ,vascular surgery evaluation and neurology clearance. Problem Qualifiers (1) TIA (transient ischemic attack): Qualified Codes: G45.3 - Amaurosis fugax Ruben Coy MD Aug 22, 2017 09:55
[2017-08-22 14:26] LABS: ANA SCREEN NEG (NEG)
--- NOTE | 2017-08-22 14:45 | HM ---
Date Performed: 08/21/2017 Time Performed: 13:43:00 HOOKUP DATE: 08/21/17 01:43:00 PM Tue ANALYSIS START TIME: 08/21/2017 1:48:00 PM ANALYSIS END TIME: 08/22/2017 8:55:40 AM PATIENT AGE: 81 PATIENT HEIGHT PATIENT WEIGHT DRUG LIST PATIENT DIAGNOSIS: PAROXYSMAL VISUAL CHANGES VENTRICULAR BIGEMINY TEST NARRATIVE: The patient's average heart rate was 74 BPM. No episodes of tachycardia wer e noted. No episodes of bradycardia were noted. No pauses exceeding 2.0 seconds were noted. 2600 ventricular ectopics, which represented 3% of the total beat count, were noted. The highest remberto tricular ectopic frequency occurred from 07:00 PM to 08:00 PM Tue. During this time 1196 VE(s) occur red. Ventricular ectopics were observed as 2597 isolated beat(s) and as 1 couplet(s). No runs were noted. Some of the ventricular beats occurred in bigeminal cycles. 7 supraventricular ectopics, which represented < 1% of the total beat count, were noted. The highest supraventricular ectopic poli quency occurred from 02:00 PM to 03:00 PM Tue. During this time 1 SVE(s) occurred. In channel 1, a single episode of ST depression (defined as -1.0 mm or more) occurred at 03:42:09 PM Tue with a ma ximum depression of -1.3 mm. No episodes of ST depression (defined as -1.0 mm or more) were noted in channel 2. No episodes of ST depression (defined as -1.0 mm or more) were noted in channel 3. PATIE NT DIARY WAS NOT RETURNED WITH HOLTER MONITOR. TEST INTERPRETATION: Sinus rhythm OCCASIONAL TO FREQUENT PVCs IN SINGLETS, BIGEMINY, AND TRIGEMINY PATTERN RARE PACs Signed by : Logan Dominguez
[2017-08-22] MEDS ORDERED: WARFARIN SOD 10 MG TAB PO ONE (19:30)
[2017-08-23] VITALS: BP 126/67; PULSE 73; RESP 18; TEMP 97.9; O2SAT 94
[2017-08-23] MEDS ORDERED: ACETAMINOPHEN 325 MG TAB PO PRN (01:15)
[2017-08-23] MEDS: SODIUM CHLOR 0.9% 1000 ML INJ 1,000 ML IV SCH (03:17)
[2017-08-23 04:00] VITALS: BP 124/66; PULSE 68; PULSE 71; RESP 18; TEMP 97.7; O2SAT 94
--- NOTE | 2017-08-23 06:34 | PD.VS.CON ---
History of Present Illness Chief Complaint: carotid stenosis Consult Requested by: medical service History of Present Illness 81 yo healthy male with several days of "flashing lights" and was admitted for possible CVA. No hemispheric symptoms and specifically no somatic weakness. No amaurosis. Has a history of a "TIA" in 2008 but mostly memory loss that was transient and he has full recall of the event. 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 Past/Family/Social History Past Medical History HTN TIA CAD cataracts BPH brain AVM Past Surgical History AVM embolization Social History former smoker Retired from [employer] and then worked for [email or web address] for 17 years Family History stroke in mother Home Medications Reported Medications Esomeprazole DR (Nexium) 20 Mg Capdr, 20 MG PO EVERY OTHER DAY, CAP 0 Refills 08/20/17 Tiotropium Inh (Spiriva Handihaler) 18 Mcg Cap, 18 MCG INH DAILY for COPD, #30 CAP 0 Refills 1 capsule = 18 mcg 08/20/17 Aspirin (Aspirin) 81 Mg Chew, 81 MG CHEW DAILY, TAB 0 Refills 08/20/17 Finasteride (Finasteride) 5 Mg Tab, 5 MG DAILY for Manage Prostate Problems, # 30 TAB 0 Refills Do not crush. 08/20/17 Alfuzosin ER 24 HR (Uroxatral ER 24 HR) 10 Mg Tab, 10 MG PO DAILY for BPH, #30 TAB 0 Refills 08/20/17 Ezetimibe (Zetia) 10 Mg Tab, 10 MG PO DAILY, #30 TAB 0 Refills 08/20/17 Simvastatin (Simvastatin) 20 Mg Tab, 20 MG PO DAILY for Cholesterol Management, #30 TAB 0 Refills 08/20/17 Coded Allergies: No Known Allergies (Unverified Adverse Reaction, Unknown, 08/20/17) Review of Systems Constitutional: DENIES: Diaphoretic episodes, Fatigue, Fever, Weight gain, Weight loss, Chills, Dizziness, Change in appetite, Night Sweats Eyes: DENIES: Eye inflammation, Vision loss Cardiovascular: DENIES: Chest pain, Palpitations, Syncope, Dyspnea on Exertion , PND, Lower Extremity Edema, Orthopnea, Claudication Physical Exam Vitals/I&O Date Time Temp Pulse Resp B/P (MAP) Pulse Ox O2 Delivery O2 Flow Rate FiO2 08/23/17 04:00 71 08/23/17 00:00 97.9 73 18 126/67 (86) 94 08/22/17 20:00 97.6 79 18 118/64 (82) 96 08/22/17 19:18 86 08/22/17 16:01 97.6 70 18 161/75 (103) 95 08/22/17 12:12 97.6 72 18 144/71 (95) 96 08/22/17 08:15 97.2 70 18 129/67 (87) 94 08/22/17 08:00 67 Neuro: alert, oriented, ELIZALDE HEENT: NC/AT; anicteric sclera Neck: trachea midline; no JVD Heart: reg rate, no M Lungs: clear B Abdomen: NT Vascular: + pulses Extremities: ELIZALDE, no deficits Last 48 hours Impressions Brain MRI 08/22/17716 Signed Impressions: Service Date/Time: Tuesday, August 22, 2017 08:52 - CONCLUSION: 1. No acute intracranial abnormality. 2. Atrophy and encephalomalacia involving the right temporal lobe. 3. 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 The prior contrast enhanced MRI on 2017 demonstrated heterogeneous enhancement throughout the right transverse sinus. The enhancement is more characteristic of a subacute to chronic thrombosis. Without prior studies for comparison interval progression or recent occlusion cannot be excluded. T2 hyperintensity is identified in the right occipital lobe. There is subtle restricted diffusion which would indicate a subacute ischemic process. There is no parenchymal hemorrhage. Lester Lamb MD Neck Magnetic Resonance Angiography 08/21/171656 Signed Impressions: Service Date/Time: Monday, August 21, 2017 10:42 - CONCLUSION: 1. 50%% stenosis involving the right ICA and 30%% stenosis of the left ICA. 2. 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 See Meredith Jr., MD Head Magnetic Resonance Angiography 08/21/171656 Signed Impressions: Service Date/Time: Monday, August 21, 2017 10:42 - CONCLUSION: 1. 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 2. Otherwise, unremarkable MRA of the brain. Sabino Pisano MD Brain MRI 08/21/171656 Signed Impressions: Service Date/Time: Monday, August 21, 2017 10:42 - CONCLUSION: 1. Postsurgical features of prior right dural AV malformation embolization with encephalomalacia in the right temporal lobe. 2. No acute abnormality. Specifically, no evidence for acute hemorrhage, acute infarction, or abnormal enhancement/mass. Zafar Contreras MD Assessment and Plan Plan I reviewed the CTA and I think the carotid stenosis is closer to 80%. However, I think he is completely asymptomatic from this and we talked about the ACAS data of 1% annual risk reduction for stroke with successful CEA. Should have continued medical management including ASA and statin and can f/u in my clinic. I will arrange f/u in 1m with carotid duplex. Ok to d/c from a vascular surgery standpoint. Scott Wilder MD FACS [employer] [facility] - Heart and Vascular Surgery at [facility] [phone] Scott Wilder MD Aug 23, 2017 06:34
[2017-08-23 07:22] LABS: INTERNATIONAL NORMALIZED RATIO 1.1 RATIO; PROTHROMBIN TIME - PATIENT 10.7 SEC (9.8-11.6)
--- NOTE | 2017-08-23 07:31 | HHI.PR ---
Subjective Remarks sr Objective Vital Signs Date Time Temp Pulse Resp B/P (MAP) Pulse Ox O2 Delivery O2 Flow Rate FiO2 08/23/17 04:00 71 08/23/17 04:00 97.7 68 18 124/66 (85) 94 08/23/17 00:00 97.9 73 18 126/67 (86) 94 08/22/17 20:00 97.6 79 18 118/64 (82) 96 08/22/17 19:18 86 08/22/17 16:01 97.6 70 18 161/75 (103) 95 08/22/17 12:12 97.6 72 18 144/71 (95) 96 08/22/17 08:15 97.2 70 18 129/67 (87) 94 08/22/17 08:00 67 I/O 08/22/17 08/22/17 08/22/17 08/23/17 08/23/17 08/23/17 07:00 15:00 23:00 07:00 15:00 23:00 Intake Total 500 ml 480 ml Balance 500 ml 480 ml Intake Oral 500 ml 480 ml # Voids 2 4 3 # Bowel Movements 0 Result Diagram: 08/20/17 1005 08/21/17 0635 Objective Remarks awake alert vff still some sparkles both eyes this am Assessment and Plan Assessment and Plan imp await labs and mri and eeg old r avm stable neuro asa for now 08/22/17 no vision change this am b12 low shots ldl and esr ok echo nl imaging on my review: left vertebral origin stenosis significant 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 off carotid system r ica may be more than 60% mri looks like some hyperintense r occipital lobe nonenhancing old r parietal encephalomalacia the r transverse sinus looks like obstruction or clot there plan asa for now recheck diffusion mri and ctvenogram brain get vascular opinion on carotid how narrow they think i dw him 08/23/17 subtle possible venous congestion/infarct r occipital lobe and clot in r transverse sinus not sure if clot is acut or chronic r ica vascular thought is 80% stenosed i have dw med team and him plan is coumadin for two months then relook at transverse sinus clot the 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
[2017-08-23 08:05] VITALS: BP 155/75; PULSE 68; RESP 19; TEMP 97.4; O2SAT 96
[2017-08-23] MEDS: TIOTROPIUM BROMIDE 18 MCG INH INH SCH (08:42)
[2017-08-23] MEDS: FINASTERIDE 5 MG TAB PO SCH (08:44)
[2017-08-23] MEDS: EZETIMIBE 10 MG TAB PO SCH (08:44)
[2017-08-23] MEDS: PRAVASTATIN SOD 40 MG TAB PO SCH (08:44)
[2017-08-23] MEDS: TAMSULOSIN HCL 0.4 MG CAP PO SCH (08:44)
[2017-08-23] MEDS: CYANOCOBALAMIN 1000 MCG/ML VIAL SQ SCH (08:45)
[2017-08-23] MEDS ORDERED: HEPARIN SODIUM - SQ 10,000 UNITS/ML VIAL SQ SCH (09:00)
--- NOTE | 2017-08-23 09:20 | HHI.PR ---
Subjective Remarks in no acute distress. is comfortable. no new complaints. hoping that he could go home today. Objective Vitals Vital Signs Date Time Temp Pulse Resp B/P (MAP) Pulse Ox O2 Delivery O2 Flow Rate FiO2 08/23/17 08:05 97.4 68 19 155/75 (101) 96 08/23/17 04:00 71 08/23/17 04:00 97.7 68 18 124/66 (85) 94 08/23/17 00:00 97.9 73 18 126/67 (86) 94 08/22/17 20:00 97.6 79 18 118/64 (82) 96 08/22/17 19:18 86 08/22/17 16:01 97.6 70 18 161/75 (103) 95 08/22/17 12:12 97.6 72 18 144/71 (95) 96 I/O 08/22/17 08/22/17 08/22/17 08/23/17 08/23/17 08/23/17 07:00 15:00 23:00 07:00 15:00 23:00 Intake Total 500 ml 480 ml Balance 500 ml 480 ml Intake Oral 500 ml 480 ml # Voids 2 4 3 # Bowel Movements 0 Result Diagram: 08/20/17 1005 08/21/17 0635 Imaging Last Impressions Brain MRI 08/22/17 0717 Signed Impressions: Service Date/Time: Tuesday, August 22, 2017 08:52 - CONCLUSION: 1. No acute intracranial abnormality. 2. Atrophy and encephalomalacia involving the right temporal lobe. 3. 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 The prior contrast enhanced MRI on 2017 demonstrated heterogeneous enhancement throughout the right transverse sinus. The enhancement is more characteristic of a subacute to chronic thrombosis. Without prior studies for comparison interval progression or recent occlusion cannot be excluded. T2 hyperintensity is identified in the right occipital lobe. There is subtle restricted diffusion which would indicate a subacute ischemic process. There is no parenchymal hemorrhage. Lester Lamb MD Neck Magnetic Resonance Angiography 08/21/17 9179 Signed Impressions: Service Date/Time: Monday, August 21, 2017 10:42 - CONCLUSION: 1. 50%% stenosis involving the right ICA and 30%% stenosis of the left ICA. 2. 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 See Meredith Jr., MD Head Magnetic Resonance Angiography 08/21/17 1657 Signed Impressions: Service Date/Time: Monday, August 21, 2017 10:42 - CONCLUSION: 1. 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 2. Otherwise, unremarkable MRA of the brain. Sabino Pisano MD Neck CTA 08/21/17 0000 Signed Impressions: Service Date/Time: Tuesday, August 22, 2017 00:59 - CONCLUSION: 1. Moderate severity a calcified plaque in the proximal right internal carotid artery with approximately 60%% stenosis. 2. Moderate calcified plaque in the proximal left internal carotid artery with approximately 30%% stenosis. Eze Juárez MD Head CTA 08/21/17 0000 Signed Impressions: Service Date/Time: Tuesday, August 22, 2017 00:59 - CONCLUSION: No acute intracranial vascular abnormality is identified. There is moderate atherosclerotic disease of the cavernous ICAs bilaterally. Eze Juárez MD Head CT 08/20/17 0947 Signed Impressions: Service Date/Time: Sunday, August 20, 2017 11:00 - CONCLUSION: Negative for acute process. Adam Cantu MD FACR Carotid Artery Ultrasound 08/20/17 0000 Signed Impressions: Service Date/Time: Sunday, August 20, 2017 13:45 - CONCLUSION: No evidence of hemodynamically significant lesion. Bud Houston MD Objective Remarks GENERAL: This is a well-nourished, well-developed patient, in no apparent distress. CARDIOVASCULAR: Regular rate and regular rhythm without murmurs, gallops, or rubs. RESPIRATORY: Clear to auscultation. Breath sounds equal bilaterally. No wheezes , rales, or rhonchi. GASTROINTESTINAL: Abdomen soft, non-tender, nondistended. Normal, active bowel sounds MUSCULOSKELETAL: Extremities without clubbing, cyanosis, or edema. NEURO: Alert & Oriented x4 to person, place, time, situation. Moves all ext x4 Procedures none Medications and IVs Inpatient Medications Acetaminophen (Tylenol) 650 mg Q4H PRN PO pain 1-10/fever > 100.4 Last administered on 08/23/17at 01:37; Start 08/23/17 at 01:15 Aspirin (Aspirin Chew) 325 mg DAILY CHEW Last administered on 08/22/17 09:33; Start 08/20/17 at 17:00; Status Future Hold Clopidogrel Bisulfate (Plavix) 75 mg NOW ONCE PO Last administered on 21:09; Start 08/21/17 at 19:45; Stop 08/21/17 at 19:46; Status DC Cyanocobalamin (Vitamin B12 Inj) 1,000 mcg DAILY SQ Last administered on 08:45; Start 08/22/17 at 09:00; Stop 08/25/17 at 08:59 Enoxaparin Sodium (Lovenox Inj) 40 mg Q24H SQ Last administered on 08/22/17 12: 40; Start 08/22/17 at 09:00; Stop 08/22/17 at 17:43; Status DC EZETIMIBE (Zetia) 10 mg DAILY PO Last administered on 08/23/17 08:44; Start 08/21/17 at 09:00 Finasteride (Proscar) 5 mg DAILY PO Last administered on 08/23/17 08:44; Start 08/21/17 at 09:00 Heparin Sodium (Porcine) (Heparin Inj) 5,000 units Q8H SQ Last administered on 08/23/17 08:45; Start 08/23/17 at 09:00 Pantoprazole Sodium (Protonix) 20 mg EVERY OTHER DAY PO Last administered on 09:33; Start 08/22/17 at 09:00 Patient Medication Teaching (Coumadin Booklet) 1 ONCE ONCE OTHER ; Start at 19:30; Stop 08/22/17 at 19:31; Status DC Pravastatin Sodium (Pravachol) 40 mg DAILY PO Last administered on 08/23/17 08: 44; Start 08/21/17 at 09:00 Sodium Chloride 1,000 ml @ 100 mls/hr Q10H IV Last administered on 08/22/17 09 :31; Start 08/22/17 at 07:17 Tamsulosin HCl (Flomax) 0.4 mg DAILY PO Last administered on 08/23/17 08:44; Start 08/21/17 at 09:00 Tiotropium [place] (Spiriva Inh) 18 mcg DAILY INH Last administered on at 08:42; Start 08/21/17 at 09:00 Warfarin Sodium (Coumadin) 5 mg DAILY@1600 PO ; Start 08/23/17 at 16:00 A/P Problem List: (1) TIA (transient ischemic attack) ICD Code: G45.9 - Transient cerebral ischemic attack, unspecified Assessment and Plan A/P - subacute CVA/ with history of TIA and carotid artery disease MRI brain 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 echo with EF 60%. neurology f/u appreciated; started on Coumadin and Lovenox. coumadin teaching will be provided. vascular surgery consulted; recommended aspirin and repeat carotid doppler in one month. continue aspirin . consulted PT. -vitamin B12 deficiency; continue with supplement. -acute kidney injury;improved. -CAD- s/p angioplasty - continue aspirin and statin. 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 -DVT prophylaxis with subq Lovenox Discharge Planning dc home today with subq Lovenox. f/u; pcp,neurology, vascular surgery and cardiology. see med list. 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 previously d/w . time spent 35 min. Problem Qualifiers (1) TIA (transient ischemic attack): Qualified Codes: G45.3 - Amaurosis fugax Ruben Coy MD Aug 23, 2017 09:20
[2017-08-23] MEDS ORDERED: COUM5TAB PO (09:23)
[2017-08-23] MEDS ORDERED: ENOX80P SQ (09:23)
[2017-08-23] MEDS ORDERED: ASPI-516 CHEW (09:23)
--- NOTE | 2017-08-23 09:24 | HHI.DS ---
Discharge Summary Admission Date Aug 22, 2017 at 09:56 Discharge Date: Aug 23, 2017 Admitting Diagnosis TIA (1) TIA (transient ischemic attack) ICD Code: G45.9 - Transient cerebral ischemic attack, unspecified Diagnosis: Principal Procedures none Brief History - From Admission patient is a 81 y/o male with history of TIA, carotid artery disease, CAD and dyslipidemia who presented to ER stating that he's had light flashes since few days ago. he denies any headache, blurred vision, painful eyes, focal weakness or slurred speech. he says that he had a surgery for his squamous cell carcinoma about a week ago. a few days after he's been seeing light flashes. he denies any chest pain or sob. he says that he had TIA years ago and he was told that he had ' some blockage in carotids but didn't require any surgeries at the time.' CBC/BMP: 08/20/17 1005 08/21/17 0635 Significant Findings Laboratory Tests Test 08/20/17 10:05 08/20/17 12:40 08/20/17 17:30 08/21/17 06:35 Red Blood Count 4.16 MIL/MM3 (4.50-5.90) Hemoglobin 12.6 GM/DL (13.0-17.0) Hematocrit 37.5 % (39.0-51.0) Platelet Count 139 TH/MM3 (150-450) Neutrophils (%) (Auto) 71.9 % (16.0-70.0) Blood Urea Nitrogen 25 MG/DL (7-18) 19 MG/DL (7-18) Creatinine 1.37 MG/DL (0.60-1.30) Albumin 3.2 GM/DL (3.4-5.0) Calcium Level 8.2 MG/DL (8.5-10.1) 7.4 MG/DL (8.5-10.1) Chloride Level 111 MEQ/L (98-107) 112 MEQ/L (98-107) Anion Gap 4 MEQ/L (5-15) Estimat Glomerular Filtration Rate 50 ML/MIN (>89) 59 ML/MIN (>89) Total Protein 5.9 GM/DL (6.4-8.2) Protein Corrected Calcium 8.1 MG/DL (8.5-10.1) Troponin I LESS THAN 0.02 NG/ML Cholesterol Level 116 MG/DL (120-200) Vitamin B12 Level 190 PG/ML (193-986) Test 08/23/17 05:59 Imaging Last Impressions Brain MRI 08/22/17 0717 Signed Impressions: Service Date/Time: Tuesday, August 22, 2017 08:52 - CONCLUSION: 1. No acute intracranial abnormality. 2. Atrophy and encephalomalacia involving the right temporal lobe. 3. 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 The prior contrast enhanced MRI on 2017 demonstrated heterogeneous enhancement throughout the right transverse sinus. The enhancement is more characteristic of a subacute to chronic thrombosis. Without prior studies for comparison interval progression or recent occlusion cannot be excluded. T2 hyperintensity is identified in the right occipital lobe. There is subtle restricted diffusion which would indicate a subacute ischemic process. There is no parenchymal hemorrhage. Lester Lamb MD Neck Magnetic Resonance Angiography [id number] Signed Impressions: Service Date/Time: Monday, August 21, 2017 10:42 - CONCLUSION: 1. 50%% stenosis involving the right ICA and 30%% stenosis of the left ICA. 2. 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 See Meredith Jr., MD Head Magnetic Resonance Angiography [id number] Signed Impressions: Service Date/Time: Monday, August 21, 2017 10:42 - CONCLUSION: 1. 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 2. Otherwise, unremarkable MRA of the brain. Sabino Pisano MD Neck CTA 08/21/17 0000 Signed Impressions: Service Date/Time: Tuesday, August 22, 2017 00:59 - CONCLUSION: 1. Moderate severity a calcified plaque in the proximal right internal carotid artery with approximately 60%% stenosis. 2. Moderate calcified plaque in the proximal left internal carotid artery with approximately 30%% stenosis. Eze Juárez MD Head CTA 08/21/17 0000 Signed Impressions: Service Date/Time: Tuesday, August 22, 2017 00:59 - CONCLUSION: No acute intracranial vascular abnormality is identified. There is moderate atherosclerotic disease of the cavernous ICAs bilaterally. Eze Juárez MD Head CT 08/20/17 0947 Signed Impressions: Service Date/Time: Sunday, August 20, 2017 11:00 - CONCLUSION: Negative for acute process. Adam Cantu MD FACR Carotid Artery Ultrasound 08/20/17 0000 Signed Impressions: Service Date/Time: Sunday, August 20, 2017 13:45 - CONCLUSION: No evidence of hemodynamically significant lesion. Bud Houston MD PE at Discharge GENERAL: This is a well-nourished, well-developed patient, in no apparent distress. CARDIOVASCULAR: Regular rate and regular rhythm without murmurs, gallops, or rubs. RESPIRATORY: Clear to auscultation. Breath sounds equal bilaterally. No wheezes , rales, or rhonchi. GASTROINTESTINAL: Abdomen soft, non-tender, nondistended. Normal, active bowel sounds MUSCULOSKELETAL: Extremities without clubbing, cyanosis, or edema. NEURO: Alert & Oriented x4 to person, place, time, situation. 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 echo with EF 60%. neurology f/u appreciated; started on Coumadin and Lovenox vascular surgery consulted; recommended aspirin and repeat carotid doppler in one month. continue aspirin . consulted PT. -vitamin B12 deficiency; continue with supplement. -acute kidney injury;improved. -CAD- s/p angioplasty - continue aspirin and statin. of note d/w ( his edi developer); recommended that aspirin to be continued along with coumadin. Pt Condition on Discharge: Good Discharge Disposition: Discharge Home Discharge Time: > 30 minutes Discharge Instructions DIET: Follow Instructions for: Heart Healthy Diet Activities you can perform: Regular-No Restrictions Ruben Coy MD Aug 23, 2017 09:24
[2017-08-23] MEDS ORDERED: CYAN1TAB24 PO (09:25)
[2017-08-23 11:15] VITALS: PULSE 80
[2017-08-23 12:23] VITALS: BP 117/61; PULSE 71; RESP 19; TEMP 97.7; O2SAT 94
--- NOTE | 2017-08-23 13:19 | EKG ---
Date Performed: 08/20/2017 Time Performed: 10:04:05 PTAGE: 81 years EKG: Sinus rhythm WITH FREQUENT VENTRICULAR PREMATURE COMPLEXES IN A BIGEMINAL PATTERN ABNORMAL RHYTHM ECG PREVIOUS TRACING : 06/30/2012 21.41 Since the prior tracing, there has been no significant dominguez DOCTOR: Bud Dias Interpretating Date/Time 08/23/2017 13:18:03
[2017-08-23] MEDS ORDERED: WARFARIN SOD 5 MG TAB PO SCH (16:00)
--- NOTE | 2017-08-24 13:47 | HHI.PR ---
Addendum To [facility] Progress Not Reason for addendum: Additonal documentation (had a lenghty discussion with the as a f/u after discharge; emphasized the need for daily PT/INR and f/u with for coumadin dosing. explained to her that the Lovenox should be discontinued when INR is therapeutic. gave her the call center phone number to contact me wit the result of INR over the weekend if they're not able to reach .) Ruben Coy MD Aug 24, 2017 13:47
== END 2017-08-23 14:33 | disposition home or self-care (01) | DRG 65 ==
LOC: NEPE 09:19 → NEDA 12:46 → N05B 15:23 → OBSVTOIN 08-22 09:56
PROVIDERS: ADMIT Internal Medicine; ATTEND Internal Medicine
DX: I63.8 Other cerebral infarction (principal); N17.9 Acute kidney failure, unspecified; Z86.73 Personal history of transient ischemic attack (TIA), and cerebral infarction without residual deficits; I25.10 Atherosclerotic heart disease of native coronary artery without angina pectoris; E78.5 Hyperlipidemia, unspecified; I65.29 Occlusion and stenosis of unspecified carotid artery; E53.8 Deficiency of other specified B group vitamins; H91.90 Unspecified hearing loss, unspecified ear; Z79.82 Long term (current) use of aspirin; R00.8 Other abnormalities of heart beat; I10 Essential (primary) hypertension; Z87.891 Personal history of nicotine dependence; Z85.828 Personal history of other malignant neoplasm of skin
CPT/HCPCS: 70450; 70496; 70498; 70544; 70548; 70551; 70553; 80048; 80053; 80061; 81001; 82550; 82607; 83735; 84155; 84425; 84439; 84443; 84484; 85025; 85610; 85652; 85730; 86038; 86592; 93005; 93306; 93880; 95819; 96360; 96361; A9579; G0378; G8987-GP; G8988-GP; J1644; J1650; J3420; J7030; J7040; Q9967